=== PATIENT | female | born 1960 | race Two or more races ===

== ENCOUNTER 2018-06-11 16:00 | Emergency (ER) | payer BC ==
[~2018-06-11] VITALS: Ht 160 cm; Wt 73.5 kg
[2018-06-11 16:02] VITALS: BP 139/77
[2018-06-11] MEDS ORDERED: diphenhydrAMINE HCL 25 MG CAPSULE ONE (16:27)
[2018-06-11] MEDS ORDERED: predniSONE 20 MG TABLET ONE (16:27)
[2018-06-11] MEDS ORDERED: FAMOTIDINE (20 MG) 20 MG TABLET ONE (16:27)
[2018-06-11] MEDS ORDERED: FAMOTIDINE (20 MG) 20 MG TABLET PO ONE (16:30)
[2018-06-11] MEDS ORDERED: DIPHENHYDRAMINE HCL 12.5 MG/5 ML UDC PO ONE (16:30)
[2018-06-11] MEDS ORDERED: predniSONE 20 MG TABLET PO ONE (16:30)
== END 2018-06-11 16:35 | disposition home or self-care (01) ==
LOC: ER 16:05
DX: T78.3XXA Angioneurotic edema, initial encounter (principal); I10 Essential (primary) hypertension; F32.9 Major depressive disorder, single episode, unspecified; M06.9 Rheumatoid arthritis, unspecified
CPT/HCPCS: 99284; A4606; J7512; Q0163 ×2; Z7610

== ENCOUNTER 2018-08-11 18:54 | Emergency (ER) | payer BC ==
[~2018-08-11] VITALS: Ht 162.6 cm; Wt 74.8 kg
--- NOTE | 2018-08-11 19:05 | NUR ---
PT AMBULATORY TO ER BED 09 C/O R CHEST WALL AND R HIP AND L RING FINGER PAIN S/P FALL FROM A 8-10 FOOT LADDER WHILE DOING GARDENING. L RING FINGER APPEARS DEFORMED. 810 PAIN W/ MOVEMENT. ALSO C/O OF SOB. NO OBVIOUS PARADOXICAL CHEST MOVEMENT. NO SIGN OF HYPOXIA. GOWNED AND PLACED ON MONITOR. VSS. AWAITING MD VILLASENOR.
--- NOTE | 2018-08-11 19:18 | NUR ---
DR RESENDIZ AT BEDSIDE FOR EVAL.
[2018-08-11] MEDS ORDERED: ONDANSETRON HCL/PF 4 MG/2 ML VIAL IVP ONE (19:30)
[2018-08-11] MEDS ORDERED: IV NS 0.9% 1,000 ML BAG IV ONE (19:30)
[2018-08-11] MEDS ORDERED: KETOROLAC TROMETHAMINE INJ 30 MG/ML VIAL IV ONE (19:30)
--- NOTE | 2018-08-11 19:34 | NUR ---
IV LINE STARTED BLOOD DRAWN AND SENT TO LAB.
--- NOTE | 2018-08-11 19:36 | NUR ---
PT TO RADIOLOGY FOR HEAD AND C SPINE CT SCAN VIA [facility].
[2018-08-11 19:37] LABS: BASOPHILS % (AUTO) 0.3 % (0.0-2.0); EOSINOPHILS % (AUTO) 0.9 % (0.0-6.0); HEMATOCRIT 36 % (33-45); HEMOGLOBIN 12.3 g/dL (11.5-14.8); LYMPHOCYTES # (AUTO) 1.3 /CMM (0.8-4.8); LYMPHOCYTES % (AUTO) 15.9 % (20.0-44.0); MEAN CORPUSCULAR HEMOGLOBIN 34 PG (26.0-33.0); MEAN CORPUSCULAR HGB CONC 34 g/dl (31.0-36.0); MEAN CORPUSCULAR VOLUME 100 fL (82-100); MONOCYTES # (AUTO) 0.5 /CMM (0.1-1.30); MONOCYTES % (AUTO) 6.6 % (2.0-12.0); NEUTROPHILS # (AUTO) 6.2 /CMM (1.8-8.9); NEUTROPHILS % (AUTO) 76.3 % (43.0-81.0); PLATELET COUNT (AUTO) 288 /CMM (150-450); RDW COEFFICIENT OF VARIATION 13.6 (11.5-15.0); WHITE BLOOD COUNT (AUTO) 8.1 K/uL (4.3-11.0)
[2018-08-11 19:48] LABS: CALCIUM, SERUM 8.7 mg/dL (8.5-10.1); CREATININE 1.1 mg/dL (0.6-1.3); POTASSIUM 4.4 mmol/L (3.5-5.1)
[2018-08-11] MEDS ORDERED: KETOROLAC TROMETHAMINE 15 MG/ML VIAL ONE (19:49)
[2018-08-11] MEDS ORDERED: ONDANSETRON HCL/PF 4 MG/2 ML VIAL ONE (19:49)
[2018-08-11 19:51] LABS: INR 0.88 (0.85-1.15)
[2018-08-11 19:53] LABS: ALBUMIN 3.5 g/dL (3.4-5.0); BILIRUBIN,DIRECT 0.1 mg/dL (0.0-0.2); BILIRUBIN,TOTAL 0.2 mg/dL (0.2-1.0); TOTAL PROTEIN, SERUM 6.4 g/dL (6.4-8.2)
--- NOTE | 2018-08-11 21:20 | NUR ---
Patient discharged to home in stable condition. Written and verbal after care instructions given. Patient verbalizes understanding of instruction.IV removed. Catheter intact and site benign. Pressure and 4x4 applied to site. No bleeding noted.
[2018-08-11 21:21] VITALS: BP 115/64
== END 2018-08-11 21:21 | disposition home or self-care (01) ==
LOC: ER 18:58
DX: S62.653A Nondisplaced fracture of middle phalanx of left middle finger, initial encounter for closed fracture (principal); S63.615A Unspecified sprain of left ring finger, initial encounter; S20.211A Contusion of right front wall of thorax, initial encounter; S00.03XA Contusion of scalp, initial encounter; I10 Essential (primary) hypertension; F32.9 Major depressive disorder, single episode, unspecified; F10.129 Alcohol abuse with intoxication, unspecified; W11.XXXA Fall on and from ladder, initial encounter; Y93.89 Activity, other specified; Y92.89 Other specified places as the place of occurrence of the external cause; Y99.8 Other external cause status
CPT/HCPCS: 26725; 29130; 36415; 70450; 71045; 72125; 72170; 73120; 80048; 80076; 83690; 85025; 85730; 96361; 96374; 99285; A6403; G0480; J1885; J7030; L0172; J2405